=== PATIENT | male | born 1955 | race Caucasian/White ===

== ENCOUNTER 2016-06-04 17:59 | Emergency (ER) | payer OTHER ==
[2016-06-04 18:09] VITALS: BP 161/100; PULSE 89; RESP 18; TEMP 98.2; O2SAT 96
--- NOTE | 2016-06-04 18:11 | UCPHY ---
H & P Patient Type: Established Chief Complaint Nursing Narrative: cough and congestion for 4-5 weeks, denies documented fevers, right ear feels clogged HPI/ROS: HPI CHIEF COMPLAINT: Cough congestion, sore throat, right ear fullness, wheezing intermittently HISTORY OF PRESENT ILLNESS: This patient very pleasant 61-year-old male no significant medical or surgical history does not take any daily medications is healthy, presents to the urgent care with 3-4 weeks of cough, congestion, sore throat, right ear fullness, wheezing intermittently. He thinks he has upper respiratory tract infection getting worse. Productive sputum at times yellow. Denies fever, vomiting, diarrhea, chest pain, shortness of breath. Past Medical History: No significant medical history Past Surgical History: No significant surgical history Social History: Denies daily use drugs alcohol tobacco products, lives locally Family History: Noncontributory ROS REVIEW OF SYSTEMS: A comprehensive 10 point review of systems is otherwise negative aside from elements mentioned in the history of present illness. Exam Constitutional triage nursing summary reviewed, vital signs reviewed, awake/ alert. Eyes normal conjunctivae and sclera, EOMI, PERRLA. HENT posterior pharynx mildly erythematous, no exudate no swelling, right TM has minimal fluid behind it, left TM normal, bronchitic sounding cough, no wheezing, no crackles, no rhonchi, good air movement, normal inspection, atraumatic, moist mucus membranes, no epistaxis, neck supple/ no meningismus, no raccoon eyes. Respiratory clear to auscultation bilaterally, normal breath sounds, no respiratory distress, no wheezing. Cardiovascular rate normal, regular rhythm, no murmur, no edema, distal pulses normal. Gastrointestinal soft, non-tender, no rebound, no guarding, normal bowel sounds, no distension, no pulsatile mass. Genitourinary no CVA tenderness. Musculoskeletal no midline vertebral tenderness, full range of motion, no calf swelling, no tenderness of extremities, no meningismus, good pulses, neurovascularly intact. Skin pink, warm, & dry, no rash, skin atraumatic. Neurologic awake, alert and oriented x 3, AAOx3, moves all 4 extremities equally, motor intact, sensory intact, CN II-XII intact, normal cerebellar, normal vision, normal speech. Psychiatric normal mood/affect. Heme/Lymph/Immune no lymphadenopathy. Differential Diagnosis: includes but is not limited to in no particular order, upper respiratory tract infection, sinusitis, viral illness, otitis media Medical Decision Making: plan for this patient he appears well nontoxic vital signs reviewed. Will start on a Z-Farhan, prednisone, albuterol, guaifenesin and Flonase. Understands return to the urgent care or emergency room if he has any worsening symptoms questions or concerns. Clinically on exam upper respiratory tract infection. No indication for chest x-ray at this time. Source: Patient - Medical/Surgical History Other PMH: denies - Family History Significant Family History: No pertinent family hx - Social History Smoking Status: Never smoked Constitutional: Initial Vital Signs Temperature (C) 36.8 C 06/04/16 18:07 Heart Rate 89 06/04/16 18:07 Respiratory Rate 18 06/04/16 18:07 Blood Pressure 161/100 H 06/04/16 18:07 O2 Sat (%) 96 06/04/16 18:07 O2 Delivery Mode Room Air Allergies/Adverse Reactions: Sulfa (Sulfonamide Antibiotics) Allergy (Verified 06/04/16 18:07) Home Medications: Medication Instructions Recorded Miscellaneous Medical Supply [NO 1 ea [facility] [place] AD 12/22/12 HOME MEDS] AZITHROMYCIN [Z-PACK] 250 mg PO DAILY #6 tab 06/04/16 Albuterol [Proventil Inhaler HFA 1 - 2 puffs IH Q4H #1 mdi 06/04/16 (*)] Fluticasone Nasal [Flonase Nasal 2 sprays NASAL DAILY #1 mdi 06/04/16 [place] (RX)] Guaifenesin [Guaifenesin ER] 600 mg PO BID #14 tab.er.12h 06/04/16 predniSONE 60 mg PO DAILY #15 tab 06/04/16 Departure - Departure Disposition: Home, Routine, Self-Care Clinical Impression: URI (upper respiratory infection) Qualifiers: URI type: unspecified URI Qualified Code(s): J06.9 - Acute upper respiratory infection, unspecified Condition: Good Instructions: Upper Respiratory Infection (ED) Additional Instructions: 1. Make sure to drink lots of fluids stay well-hydrated 2.Take your medications with food not empty stomach. 3. Return to the urgent care or emergency room if you have any worsening symptoms questions or concerns. Prescriptions: Albuterol [Proventil Inhaler HFA (*)] 1 - 2 puffs IH Q4H #1 mdi AZITHROMYCIN [Z-PACK] 250 mg PO DAILY #6 tab Fluticasone Nasal [Flonase Nasal [place] (RX)] 2 sprays NASAL DAILY #1 mdi Guaifenesin [Guaifenesin ER] 600 mg PO BID #14 tab.er.12h predniSONE 60 mg PO DAILY #15 tab - PQRS PQRS Measurement: n/a
== END 2016-06-04 18:38 | disposition home or self-care (01) ==
LOC: CED 17:59
DX: J06.9 Acute upper respiratory infection, unspecified (principal); H93.91 Unspecified disorder of right ear
CPT/HCPCS: 99214-PO; G0463-PO